=== PATIENT | female | born 1975 | race Caucasian/White ===

== ENCOUNTER → 2017-09-17 | Outpatient (CLI) | payer BC ==
--- NOTE | 2017-09-17 15:44 | DIAGNOSTIC IMAGING REPORT ---
R WRIST MIN 3 VIEWS ROUTINE, R HAND MIN 3 VIEWS ROUTINE CLINICAL HISTORY: 42 years-old Female presenting with S60.211A Contusion of right wrist, injury at the base of the thumb. TECHNIQUE: Frontal, lateral oblique, and lateral views of the right wrist as well as frontal, oblique, and lateral views of the right hand were obtained. COMPARISON: None. FINDINGS: Right wrist: No acute fracture or malalignment. No advanced degenerative change. No radiographic soft tissue abnormality. Right hand: No acute fracture or malalignment. No advanced degenerative change. No radiographic soft tissue abnormality. IMPRESSION: No acute osseous injury of the right wrist or right hand. Electronically signed by: Antonio Chavez M.D. 09/17/2017 3:42 PM Dictated Date/Time: 09/17/2017 3:40 PM
== END | disposition home or self-care (01) ==
LOC: C.RAD 15:03
PROVIDERS: ATTEND Physician Assistant Medical
DX: S60.211A Contusion of right wrist, initial encounter (principal); X58.XXXA Exposure to other specified factors, initial encounter